=== PATIENT | female | born 2000 | race Caucasian/White ===

== ENCOUNTER 2024-12-08 11:04 | Emergency (ER) | payer MEDICAID, SELFPAY | END 2024-12-08 12:53 | disposition home or self-care (01) | LOC: CSHERS 11:04 | DX: S32.031A Stable burst fracture of third lumbar vertebra, initial encounter for closed fracture (principal); S32.041A Stable burst fracture of fourth lumbar vertebra, initial encounter for closed fracture; V89.2XXA Person injured in unspecified motor-vehicle accident, traffic, initial encounter | CPT/HCPCS: 72100; 99283 ==